=== PATIENT | male | born 1980 | race Caucasian/White ===

== ENCOUNTER → 2019-08-29 | Outpatient (CLI) | payer BC, SELFPAY ==
[2019-08-29 11:36] VITALS: BMI 29.9
[2019-08-29 14:35] LABS: AST(SGOT) 16 U/L (15-37); Alanine Aminotransfer ALT/SGPT 17 U/L (16-61); Albumin, Serum 3.8 g/dL (3.2-5.0); Alkaline Phosphatase 115 U/L (45-117); Anion Gap 9 (5-15); BUN 10 mg/dL (7-18); BUN/Creat Ratio 10.9 RATIO (10-20); Calcium,Total 9.1 mg/dL (8.5-10.1); Chloride 101 mmol/L (98-107); Creatinine, Serum 0.92 mg/dL (0.70-1.30); EST Glomerular Filtration Rate 97 mL/min (>60); Est Glom Filt Rate - Afr Amer 118 mL/min (>60); Globulin 3.8 g/dL (2.2-4.2); Glucose 196 mg/dL (74-106); Luteinizing Hormone 3.8 mIU/mL; Potassium 4.1 mmol/L (3.5-5.1); Prolactin 2.9 ng/mL; Protein, Total 7.6 g/dL (6.4-8.2); Sodium Level 136 mmol/L (136-145); Thyroid Stim Hormone (TSH) 2.03 uIU/mL (0.358-3.74)
[2019-09-02 12:07] LABS: Testosterone, Free 11.86 ng/dL (5.00-21.00)
[2019-09-02 15:27] LABS: Testosterone, % Free 2.43 % (1.50-4.20); Testosterone, Total 488 ng/dL (264-916)
== END | disposition home or self-care (01) ==
LOC: LAB 12:38
PROVIDERS: Referring Provider Internal Medicine Endocrinology, Diabetes & Metabolism; Visit Provider Internal Medicine Endocrinology, Diabetes & Metabolism
DX: E10.49 Type 1 diabetes mellitus with other diabetic neurological complication (principal)
CPT/HCPCS: 36415; 80053; 83002; 84146; 84402; 84403; 84443